=== PATIENT | female | born 1990 | race Caucasian/White ===

== ENCOUNTER 2016-12-21 21:12 | Emergency (ER) | payer SELFPAY ==
[~2016-12-21 21:12] MED LIST: CLIN150 PO
[2016-12-21 21:16] VITALS: BP 108/55; PULSE 68; RESP 16; TEMP 98.2; O2SAT 100
[2016-12-21] MEDS ORDERED: LIDOCAINE 1%/EPINEPHrine 1:100,000 SOLN 50 ML VIAL INFIL ONE (22:15)
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
[2016-12-21] MEDS ORDERED: LIDOCAINE HCL 1% PF 30 ML VIAL ONE (22:28)
[2016-12-21] MEDS ORDERED: LIDOCAINE HCL 2% 20 ML VIAL ONE (22:29)
[2016-12-21] MEDS ORDERED: BUPIVACAINE/EPINEPHRINE 0.5% PF 30 ML VIAL NERV BLOCK ONE (22:45)
[2016-12-21] MEDS ORDERED: BACT800T5 PO (22:54)
[2016-12-21] MEDS ORDERED: CEPH-460 PO (22:54)
== END 2016-12-21 23:12 | disposition home or self-care (01) ==
LOC: NEPK 21:12
DX: L02.211 Cutaneous abscess of abdominal wall (principal); B95.62 Methicillin resistant Staphylococcus aureus infection as the cause of diseases classified elsewhere; F17.200 Nicotine dependence, unspecified, uncomplicated
CPT/HCPCS: 10061; 86403; 87070; 87186; 87205